=== PATIENT | male | born 2000 | race Caucasian/White ===

== ENCOUNTER 2021-02-09 13:24 | Emergency (ER) | payer BC ==
[~2021-02-09] VITALS: Ht 182.9 cm; Wt 81.6 kg
[2021-02-09 13:44] VITALS: BP_SYST 142
[2021-02-09] MEDS ORDERED: DIPH-TET-PERTUS Vaccine 0.5 ML VIAL (ADACEL) I.M. ONE (14:15)
[2021-02-09] MEDS ORDERED: LIDOCAINE/EPI 1% 1:100000 20 ML VIAL INJ ONE (14:24)
[2021-02-09 14:50] VITALS: BP_SYST 142
== END 2021-02-09 14:50 | disposition home or self-care (01) ==
LOC: SED 13:34
DX: S01.511A Laceration without foreign body of lip, initial encounter (principal); W54.0XXA Bitten by dog, initial encounter; Y93.89 Activity, other specified; Y92.89 Other specified places as the place of occurrence of the external cause; Y99.8 Other external cause status
CPT/HCPCS: 90715; 99283

== ENCOUNTER 2022-04-14 12:42 | Emergency (ER) | payer BC ==
[~2022-04-14] VITALS: Ht 182.9 cm; Wt 83.9 kg
[2022-04-14 12:54] VITALS: BP_SYST 145
[2022-04-14] MEDS ORDERED: KETOROLAC TROMETHAMINE 30 MG VIAL IM ONE (14:15)
[2022-04-14] MEDS ORDERED: NAPR-688 PO (14:17)
--- NOTE | 2022-04-14 14:30 | NUR ---
Pt bib parent to the ER CC toe pain. Pt c/o 7/10 toe pain to greater toe onf right foot. Pt states no trauma skin intact cap refill <3sec.
--- NOTE | 2022-04-14 14:35 | NUR ---
ER at bedside examining patient.
[2022-04-14 14:40] VITALS: BP_SYST 145
--- NOTE | 2022-04-14 14:43 | NUR ---
Patient given written and verbal discharge instructions and verbalizes understanding. ER MD discussed with patient the results and treatment provided. Patient in stable condition. ID arm band removed. Rx of Naproxen given. Patient educated on pain management and to follow up with PMD. Pain Scale 4. Opportunity for questions provided and answered. Medication side effect fact sheet provided.
== END 2022-04-14 14:40 | disposition home or self-care (01) ==
LOC: SED 12:42
DX: M79.675 Pain in left toe(s) (principal); Z79.899 Other long term (current) drug therapy
CPT/HCPCS: 99283; 73660; 96372; J1885